=== PATIENT | male | born 1980 | race Caucasian/White ===

== ENCOUNTER 2023-04-11 10:22 | Emergency (ER) | payer OTHER, SELFPAY ==
[2023-04-11 10:27] VITALS: BP 147/80; PULSE 69; RESP 18; TEMP 36.5; O2SAT 96; BMI 32.1
--- NOTE | 2023-04-11 10:42 | ED.WOUNDLAC ---
HPI - Wound/Laceration General Chief Complaint: Wound/Laceration Stated Complaint: cut finger at work Time Seen by Provider: 04/11/23 10:31 Source: patient Mode of arrival: Ambulatory Limitations: no limitations History of Present Illness HPI narrative: Patient is a 43-year-old male who is here for evaluation of a cut to his left thumb that occurred while he was at work. He cut it with a knife. He put a Band-Aid and pressure over it after the event. He is up-to-date on his tetanus. Related Data Allergies Allergy/AdvReac Type Severity Reaction Status Date / Time latex Allergy Rash Verified 04/11/23 10:30 Review of Systems Musculoskeletal Musculoskeletal: Reports system reviewed and no additional complaints, except as documented Integumentary/Breasts Skin/Breast: Reports system reviewed and no additional complaints, except as documented Hematologic/Lymphatic On Anticoagulants: No Patient History Social History Smoking Status: Current every day smoker Smoking Status: Current every day smoker tobacco type: vaping alcohol intake frequency: 0-2 drinks per day Substance Use Type: marijuana Exam Initial Vital Signs Initial Vital Signs: Vital Signs Temperature 97.7 F 04/11/23 10:27 Pulse Rate 69 04/11/23 10:27 Respiratory Rate 18 04/11/23 10:27 Blood Pressure 147/80 H 04/11/23 10:27 Pulse Oximetry 96 04/11/23 10:27 Oxygen Delivery Method Room Air 04/11/23 10:27 Skin Other: 1 cm laceration on the ulnar aspect of the thumb. Does not involve the nail bed. Neuro Sensory Exam: no sensory deficits noted Extrem Other: Full range of motion of left thumb. Procedures Laceration Repair Laceration 1: Site: other (Thumb) Side (If applicable): left Size (cm): 1 Description: linear Depth: simple, single layer Pre-repair: wound explored Skin layer closed with: dermabond Course Vital Signs Vital signs: Vital Signs - 8 hr 04/11/23 10:27 Temperature 97.7 F Pulse Rate 69 Respiratory Rate 18 Blood Pressure 147/80 H Pulse Oximetry 96 Oxygen Delivery Method Room Air MDM - Wound/Laceration MDM Narrative Medical decision making narrative: Patient is up-to-date on tetanus. Has a superficial laceration to the left thumb that was closed with Dermabond. Patient was given care instructions and return precautions. He expressed understanding and agreement. Discharge Plan Departure Patient Disposition: Home Clinical Impression: Laceration Instructions: DI for Laceration Repair-Skin Glue Activity Restrictions/Additional Instructions: You can wash your hands like normal. Try your best not to pick at the skin glue. It should start to come off on its own within the next week. The wound is going to heal well. You are going to need to have it covered when you are at work. Return to the emergency department for new symptoms. Stand Alone Forms: Patient Portal/API
== END 2023-04-11 11:20 | disposition home or self-care (01) ==
LOC: ED 11:06
PROVIDERS: Emergency Provider Emergency Medicine
DX: S61.012A Laceration without foreign body of left thumb without damage to nail, initial encounter (principal); W26.0XXA Contact with knife, initial encounter; Y99.0 Civilian activity done for income or pay
CPT/HCPCS: 12001; 99281; 99282